=== PATIENT | female | born 1955 | race Caucasian/White ===

== ENCOUNTER → 2017-03-16 | Outpatient (CLI) | payer OTHER | LOC: BC 14:46 | DX: Z12.31 Encounter for screening mammogram for malignant neoplasm of breast (principal) ==

== ENCOUNTER → 2017-03-20 | Outpatient (CLI) | payer OTHER | LOC: ULTRA 13:58 | DX: N63 Unspecified lump in breast (principal) ==

== ENCOUNTER → 2020-08-24 | Outpatient (CLI) | payer BC, OTHER | LOC: LAB 11:23 | PROVIDERS: ATTEND Nurse Practitioner | DX: Z20.828 Contact with and (suspected) exposure to other viral communicable diseases (principal) ==

== ENCOUNTER 2021-07-17 17:12 | Emergency (ER) | payer BC, OTHER ==
[~2021-07-17] VITALS: Ht 157.5 cm; Wt 99.8 kg
[2021-07-17 17:15] VITALS: BP 144/59
== END 2021-07-17 19:16 | disposition home or self-care (01) ==
LOC: ER 17:12
DX: S66.397A Other injury of extensor muscle, fascia and tendon of left little finger at wrist and hand level, initial encounter (principal); M54.50 Low back pain, unspecified; R07.89 Other chest pain; M79.645 Pain in left finger(s); J45.909 Unspecified asthma, uncomplicated; E03.9 Hypothyroidism, unspecified; I10 Essential (primary) hypertension; E78.5 Hyperlipidemia, unspecified; Z90.89 Acquired absence of other organs; W01.0XXA Fall on same level from slipping, tripping and stumbling without subsequent striking against object, initial encounter; Y93.89 Activity, other specified; Y92.89 Other specified places as the place of occurrence of the external cause; Y99.8 Other external cause status

== ENCOUNTER 2021-10-13 21:46 | Emergency (ER) | payer BC, OTHER ==
[~2021-10-13] VITALS: Ht 157.5 cm; Wt 90.7 kg
[2021-10-14] MEDS ORDERED: MELOXICAM15 MG PO (02:42)
[2021-10-14 05:19] VITALS: BP 151/85
== END 2021-10-14 03:30 | disposition home or self-care (01) ==
LOC: ER 21:46
DX: S29.011A Strain of muscle and tendon of front wall of thorax, initial encounter (principal); S20.211A Contusion of right front wall of thorax, initial encounter; E03.9 Hypothyroidism, unspecified; Z90.89 Acquired absence of other organs; W10.8XXA Fall (on) (from) other stairs and steps, initial encounter; Y93.89 Activity, other specified; Y92.89 Other specified places as the place of occurrence of the external cause; Y99.8 Other external cause status